=== PATIENT | male | born 1990 | race African-American/Black ===

== ENCOUNTER 2023-12-28 09:40 | Emergency (ER) | payer OTHER, SELFPAY ==
--- NOTE | ~2023-12-28 | XR_ITS ---
EXAMINATION: XR knee RT min 4V DATE: 12/28/2023 12:28 INDICATION: Right knee pain. TECHNIQUE: 4 views of right knee were obtained. COMPARISON: None. FINDINGS: Alignment is normal. No fracture. Joint spaces are normal. No knee joint effusion. IMPRESSION: 1. Normal right knee. Reviewed, dictated and finalized at location A. IMPRESSION: 1. Normal right knee.
[2023-12-28 09:41] VITALS: BP 145/96; PULSE 89; RESP 16; TEMP 36.4; O2SAT 99
--- NOTE | 2023-12-28 12:49 | ED.LOWEXIN ---
HPI - Extremity Injury (Lower) General Chief Complaint: Extremity Injury, Lower Stated Complaint: R knee pain Time Seen by Provider: 12/28/23 11:46 Source: patient Mode of arrival: ambulatory Limitations: no limitations History of Present Illness HPI Narrative: Patient is a 33-year-old male who presents the ED with report of right knee pain. Patient reports he ran several miles over the weekend and has had pain in his right medial knee since then. Feels unstable when he is ambulating. Denies significant swelling, numbness. Denies direct injury. Has been taking Tylenol for the pain without much relief. Related Data Allergies Allergy/AdvReac Type Severity Reaction Status Date / Time iohexol Allergy Hives Verified 12/28/23 09:45 [From contrast - CT, X-RAY] Review of Systems Review of Systems: CONSTITUTIONAL: Denies fever, chills, or sweats. MUSCULOSKELETAL: See HPI. NEUROLOGIC: Denies headache, dizziness, numbness, or weakness. All systems reviewed & are unremarkable except as noted in HPI and below Exam Narrative: GENERAL: Well appearing, well-nourished, non-toxic, in no acute distress. HEAD: Normocephalic, atraumatic. RESPIRATORY: Airway patent, respirations nonlabored. CARDIOVASCULAR: Regular rate and rhythm. Peripheral pulses intact. MUSCULOSKELETAL: Moves all extremities. No gross deformities. Mild TTP throughout medial inferior R knee, minimal swelling. No warmth or erythema. Sensation intact. SKIN: Warm, dry, normal color. NEURO: A&O X3. Speech clear. Cranial nerves II-XII grossly intact. Steady gait. No ataxic movements. PSYCHIATRIC: Appropriate mood and affect. Normal interaction. Course Vital Signs Vital signs: Vital Signs Temperature 97.6 F 12/28/23 09:41 Pulse Rate 89 12/28/23 09:41 Respiratory Rate 16 12/28/23 09:41 Blood Pressure 145/96 H 12/28/23 09:41 Pulse Oximetry 99 12/28/23 09:41 Oxygen Delivery Room Air 12/28/23 09:41 Temperature 97.6 F 12/28/23 09:41 Pulse Rate 89 12/28/23 09:41 Respiratory Rate 16 12/28/23 09:41 Blood Pressure 145/96 H 12/28/23 09:41 Pulse Oximetry 99 12/28/23 09:41 Oxygen Delivery Room Air 12/28/23 09:41 MDM - Extremity Injury (Lower) MDM Narrative Medical decision making narrative: Patient?s injury is consistent with musculoskeletal etiology. No signs of neurologic or vascular compromise on physical examination. Compartments are soft without signs of compartment syndrome. XR unremarkable, no joint effusion. Pain is consistent with strain. Discussed possibility of ligamentous or meniscal injury. Patient is felt to be stable for discharge home and further outpatient management and treatment. Placed in LINO bandage in the ED. Discussed rice therapy, advised to utilize anti-inflammatories. Will refer to orthopedics for further evaluation if needed. Given return precautions. Discharged in stable condition. Medical Records Attestation: I reviewed the patient's medical records. Imaging Data Attestation: I personally reviewed and interpreted this imaging study as follows: Radiologist's impression: ITS Impressions Knee X-Ray 12/28/23 12:29 IMPRESSION: 1. Normal right knee. Discharge Plan Discharge Clinical Impression: Strain of right knee Qualifiers: Encounter type: initial encounter Qualified Code(s): S86.911A - Strain of unspecified muscle(s) and tendon(s) at lower leg level, right leg, initial encounter Patient Disposition: Home, Self-Care Condition: Stable Instructions: Antibiotic Form, Knee Pain (ED), P.R.I.C.E. Treatment (ED) Additional Instructions: Recommend Tylenol, ibuprofen as needed for further discomfort. Recommend ice, elevation of leg, Lino bandage for compression and support. Follow-up with orthopedics for further evaluation if needed. Return to the ED if you experience worsening or severe pain or swelling, recurrent injury, numbness, or any other symptoms of concern
[2023-12-28] MEDS: KETOROLAC (*BKC) 60 MG/2 ML VIAL IM (12:51)
== END 2023-12-28 13:20 | disposition home or self-care (01) ==
PROVIDERS: Emergency Provider Physician Assistant
DX: S86.911A Strain of unspecified muscle(s) and tendon(s) at lower leg level, right leg, initial encounter (principal); X50.9XXA Other and unspecified overexertion or strenuous movements or postures, initial encounter; Y93.02 Activity, running
CPT/HCPCS: 73564; 96372; 99283; J1885